=== PATIENT | male | born 1985 | race African-American/Black ===

== ENCOUNTER 2017-11-11 03:55 | Emergency (ER) | payer MEDICAID ==
[~2017-11-11] VITALS: Ht 177.8 cm; Wt 100.0 kg
[2017-11-11 04:10] VITALS: BP 116/79
== END 2017-11-11 04:15 | disposition home or self-care (01) ==
LOC: ER 03:55
DX: G40.909 Epilepsy, unspecified, not intractable, without status epilepticus (principal)
CPT/HCPCS: 82962; 99283

== ENCOUNTER 2019-04-14 21:08 | Emergency (ER) | payer MEDICAID ==
[~2019-04-14] VITALS: Ht 182.9 cm; Wt 87.0 kg
[2019-04-14] MEDS ORDERED: IBUPROFEN 600MG TABLET PO STA (21:46)
[2019-04-14] MEDS ORDERED: LEVETIRACETAM 500MG PREMIX 100 ML IV ONE (22:00)
[2019-04-14 22:55] LABS: BASOPHILS % 0.5 % (0.0-2.0); EOSINOPHILS % 0.1 % (0.0-5.0); HEMATOCRIT. 39.9 % (42.0-52.0); HEMOGLOBIN. 13.5 g/dL (14.0-18.0); LYMPHOCYTES % 11.9 % (20.0-50.0); MEAN CORPUSCULAR HEMOGLOBIN 31.1 pg (28.0-32.0); MEAN CORPUSCULAR VOLUME 91.5 fL (80.0-94.0); MEAN PLATELET VOLUME 8.9 fl (7.4-10.4); MONOCYTES % 10.6 % (2.0-8.0); NEUTROPHILS % 76.9 % (40.0-76.0); PLATELET 100 x1000/uL (130-400); RED BLOOD CELL COUNT 4.36 mill/uL (4.7-6.1); RED CELL DISTRIBUTION WIDTH 14.7 % (11.6-14.6)
[2019-04-14 22:59] LABS: CHLORIDE 108 mEq/L (98-107)
[2019-04-14] MEDS ORDERED: LEVETIRACETAM 500MG TABLET PO ONE (23:30)
[2019-04-14 23:44] VITALS: BP 123/81
== END 2019-04-14 23:44 | disposition home or self-care (01) ==
LOC: ER 21:08
DX: G40.909 Epilepsy, unspecified, not intractable, without status epilepticus (principal); F17.210 Nicotine dependence, cigarettes, uncomplicated; Z71.6 Tobacco abuse counseling
CPT/HCPCS: 36415; 80053; 85025; 96365; 99283; 99406; J1953